=== PATIENT | female | born 1990 | race Caucasian/White ===

== ENCOUNTER 2020-04-03 18:57 | Inpatient (IN) | payer MEDICAID ==
[~2020-04-03] VITALS: Ht 172.7 cm; Wt 58.6 kg
[2020-04-03] MEDS ORDERED: SODIUM CHLORIDE 0.9% 1,000ML IVBOLUS ONE (19:30)
[2020-04-03] MEDS ORDERED: ONDANSETRON 2MG/ML, 2ML IVPush ONE (19:30)
[2020-04-03] MEDS ORDERED: MORPHINE SULFATE 4 MG/ML, 1ML IVPush ONE (19:30)
[2020-04-03] MEDS ORDERED: ONDANSETRON 2MG/ML, 2ML ONE (19:51)
[2020-04-03] MEDS ORDERED: MORPHINE SULFATE 4 MG/ML, 1ML ONE (19:52)
[2020-04-03 20:21] LABS: BASOPHILS % (AUTO) 0 % (0-1); EOSINOPHILS % (AUTO) 1 % (1-7); LYMPHOCYTES % (AUTO) 13 % (22-44); MEAN CORPUSCULAR HEMOGLOBIN 29.5 pg (27.0-34.8); MEAN CORPUSCULAR HGB CONC 33.7 g/dL (32.4-35.8); MONOCYTES % (AUTO) 7 % (2-9); NEUTROPHILS % (AUTO) 80 % (42-75); PLATELET COUNT 262 x10^3/uL (130-400); RED BLOOD COUNT 4.56 x10^6/uL (3.82-5.3); RED CELL DISTRIBUTION WIDTH 13.2 % (9.6-15.2)
[2020-04-03 20:24] LABS: MD NO
--- NOTE | 2020-04-03 20:29 | NUR ---
PT STATES WAKING UP A FEW DAYS AGO WITH PAIN TO RIGHT NECK INTO JAW AND EAR. PT MEDICATED PER ORDER WITH SLIGHT RELIEF STATED. IV PLACED. BLOODS DRAWN. PLAN FOR CT. FAMILY AT BEDSIDE. WILL MONITOR.
[2020-04-03 20:33] LABS: ANION GAP 8 mmol/L (5-15); CALCIUM 8.8 mg/dL (8.5-10.1); CHLORIDE 108 mmol/L (98-107)
[2020-04-03] MEDS ORDERED: KETOROLAC 30 MG/1 ML ONE (20:46)
[2020-04-03] MEDS ORDERED: HYDROmorphone 1 MG/ML, 1ML INJ ONE (20:57)
[2020-04-03] MEDS ORDERED: HYDROmorphone 1 MG/ML, 1ML INJ IV ONE (21:00)
[2020-04-03] MEDS ORDERED: KETOROLAC 30 MG/1 ML IVPush ONE (21:00)
--- NOTE | 2020-04-03 21:01 | NUR ---
CT DELAY- NEED MEDS TO LAY FLAT.
[2020-04-03 21:12] LABS: HCT (SEDRATE) 39.9 % (34.6-47.8)
[2020-04-03] MEDS ORDERED: OMNIPAQUE 350 MG/ML, 100ML BOTTLE ONE (21:46)
[2020-04-03] MEDS ORDERED: CLINDAMYCIN PMX 600MG/50ML 50 ML IV ONE (22:30)
[2020-04-03] MEDS ORDERED: DEXAMETHASONE 4 MG TABLET PO ONE (22:30)
[2020-04-03] MEDS ORDERED: LEVOFLOXACIN/PMX 500MG/100ML 100 ML IV SCH (22:30)
[2020-04-03] MEDS ORDERED: LEVOFLOXACIN/PMX 500MG/100ML 100 ML ONE (22:43)
[2020-04-03] MEDS ORDERED: CLINDAMYCIN PMX 600MG/50ML 50 ML ONE (22:43)
[2020-04-03] MEDS ORDERED: DEXAMETHASONE 4 MG TABLET ONE (22:43)
[2020-04-03] MEDS ORDERED: ENALAPRILAT 1.25 MG/ML, 2ML IVPush PRN (23:30)
[2020-04-03] MEDS ORDERED: ONDANSETRON 2MG/ML, 2ML IVPush PRN (23:30)
[2020-04-03] MEDS ORDERED: ACETAMINOPHEN 325 MG TABLET PO PRN (23:30)
[2020-04-03] MEDS ORDERED: KETOROLAC 30 MG/1 ML IV PRN (23:30)
--- NOTE | 2020-04-03 23:52 | NUR ---
Pt mediated per orders. MRI checklist complete. Pt appears and states she is much more comfortable. Soft c-collar placed. Pt with stable VS. report called to Maryana MONTIEL. Pt to unit via ronel.
[2020-04-04 00:02] VITALS: BP 120/77
[2020-04-04] MEDS: LACTATED RINGERS 1,000 ML IV SCH ×3 (00:13→20:26)
[2020-04-04] MEDS: CLINDAMYCIN PMX 600MG/50ML 50 ML IV SCH ×4 (01:10→23:43)
[2020-04-04] MEDS: HYDROmorphone 2 MG/ML, 1ML IVPush PRN ×2 (02:23→12:47)
[2020-04-04] MEDS ORDERED: GADOTERATE 7.5 MMOL/15 ML VIAL ONE (02:52)
[2020-04-04] MEDS ORDERED: QUET150T4 PO ×2 (03:28→03:47)
[2020-04-04] MEDS ORDERED: QUET25TA70 PO (03:34)
[2020-04-04] MEDS ORDERED: QUET300T PO (03:37)
[2020-04-04 05:25] LABS: BASOPHILS % (AUTO) 0 % (0-1); EOSINOPHILS % (AUTO) 0 % (1-7); LYMPHOCYTES % (AUTO) 5 % (22-44); MEAN CORPUSCULAR HEMOGLOBIN 29.2 pg (27.0-34.8); MEAN CORPUSCULAR HGB CONC 32.9 g/dL (32.4-35.8); MONOCYTES % (AUTO) 2 % (2-9); NEUTROPHILS % (AUTO) 93 % (42-75); PLATELET COUNT 231 x10^3/uL (130-400); RED BLOOD COUNT 4.14 x10^6/uL (3.82-5.3); RED CELL DISTRIBUTION WIDTH 13.1 % (9.6-15.2)
[2020-04-04 05:26] LABS: MD NO
[2020-04-04 05:35] LABS: ANION GAP 6 mmol/L (5-15); CALCIUM 8.3 mg/dL (8.5-10.1); CHLORIDE 109 mmol/L (98-107); CREATININE 0.71 mg/dL (0.55-1.02)
[2020-04-04 07:08] VITALS: BP 107/62
[2020-04-04] MEDS ORDERED: DEXAMETHASONE 4 MG/ML, 1ML IVPush SCH (09:00)
[2020-04-04 12:28] VITALS: BP 102/61
[2020-04-04 18:56] VITALS: BP 112/65
[2020-04-04] MEDS ORDERED: LEVOFLOXACIN/PMX 750MG/150ML 150 ML IV SCH (22:00)
[2020-04-05 01:44] VITALS: BP 113/66
[2020-04-05 08:04] VITALS: BP 120/78
[2020-04-05] MEDS: CLINDAMYCIN PMX 600MG/50ML 50 ML IV SCH (08:19)
[2020-04-05] MEDS: HYDROmorphone 2 MG/ML, 1ML IVPush PRN (08:33)
[2020-04-05] MEDS ORDERED: CLIN300C9 PO (10:07)
[2020-04-05] MEDS ORDERED: LEVO750T6 PO (10:07)
[2020-04-05] MEDS ORDERED: DEXA6TAB6 PO (10:07)
[2020-04-05] MEDS ORDERED: KETO10TA PO (10:07)
== END 2020-04-05 11:53 | disposition home or self-care (01) | DRG 113 ==
LOC: ED 22:02 → EDIP 22:46 → 3N 04-04 00:01 → DCLOUNGE 04-05 11:45
PROVIDERS: ADMIT Family Medicine; ATTEND Family Medicine
DX: J02.9 Acute pharyngitis, unspecified (principal); F17.210 Nicotine dependence, cigarettes, uncomplicated; F51.04 Psychophysiologic insomnia; J35.1 Hypertrophy of tonsils; M43.6 Torticollis; M65.20 Calcific tendinitis, unspecified site; G47.00 Insomnia, unspecified; R13.10 Dysphagia, unspecified; Z20.822 Contact with and (suspected) exposure to COVID-19; Z80.41 Family history of malignant neoplasm of ovary; Z88.0 Allergy status to penicillin; Z79.899 Other long term (current) drug therapy
CPT/HCPCS: 36415; 70491; 72156; 80048; 83605; 84703; 85025; 85651; 87040; 87635; G0378; J1100; J1170; J1885; J1956; J2405; Q9967; A9575; J2270; J7030; J7120

== ENCOUNTER 2020-06-02 13:34 | Emergency (ER) | payer MEDICAID ==
[~2020-06-02] VITALS: Ht 172.7 cm; Wt 51.5 kg
[~2020-06-02 13:34] MED LIST: CLIN300C9 PO; DEXA6TAB6 PO; KETO10TA PO; LEVO750T6 PO; QUET150T4 PO; QUET25TA2 PO; QUET300T PO
--- NOTE | 2020-06-02 14:04 | NUR ---
PT AMBULATORY TO ROOM 21 W/ C/O LESION TO VAGINA AND LUMP TO L GROIN AREA. PT STATES SHE NOTICED THEM A FEW DAYS AGO. ON PALPATION L GROIN LUMP NOTED TO BE TENDER. PT RESTING ON ROTTO. NADN. MONITORS APPLIED. VSS. WARM BLANKET PROVIDED.
[2020-06-02] MEDS ORDERED: CEFTRIAXONE 1,000 MG ONE (14:54)
[2020-06-02] MEDS ORDERED: CEFTRIAXONE 250 MG ONE (14:57)
[2020-06-02] MEDS ORDERED: CEFTRIAXONE 1,000 MG IM ONE (15:00)
[2020-06-02] MEDS ORDERED: FLUCONAZOLE 50 MG TABLET PO ONE (15:00)
[2020-06-02 15:08] LABS: CLUE CELLS PRESENT (NONE SEEN)
[2020-06-02 15:10] LABS: WET PREP WBCS MODERATE (FEW)
--- NOTE | 2020-06-02 15:10 | NUR ---
PT RESTING ON GURNEY. NADN. KIDD.
[2020-06-02 15:17] VITALS: BP 110/63
--- NOTE | 2020-06-02 15:17 | NUR ---
BREAK RN: VS STABLE. CALL LIGHT IN PLACE. WILL CONTINUE TO MONITOR WHILE PRIMARY RN IS ON BREAK.
--- NOTE | 2020-06-02 15:48 | NUR ---
PT CHART REVIEWED AND PLACED FOR RECHECK.
== END 2020-06-02 16:06 | disposition home or self-care (01) ==
LOC: ED 15:34
DX: N76.0 Acute vaginitis (principal); N76.4 Abscess of vulva
CPT/HCPCS: 87210; 87491; 87591; 87808; 96372; 99283; J0696

== ENCOUNTER 2020-10-30 19:56 | Emergency (ER) | payer MEDICAID ==
[~2020-10-30] VITALS: Ht 175.3 cm; Wt 57.0 kg
[2020-10-30 19:59] VITALS: BP 107/62
[2020-10-30] MEDS ORDERED: ACETAMINOPHEN 325 MG TABLET PO ONE (20:30)
--- NOTE | 2020-10-30 20:55 | NUR ---
PATIENT AMBULATED TO THE BATHROOM WITHOUT ASSISTANCE, PELVIC SET UP, PROVIDER AWARE.
[2020-10-30] MEDS ORDERED: ACETAMINOPHEN 325 MG TABLET ONE (21:13)
[2020-10-30 21:21] LABS: CLUE CELLS NONE SEEN (NONE SEEN); WET PREP WBCS NONE SEEN (FEW)
[2020-10-30] MEDS ORDERED: DOXYCYCLINE 100MG TABLET ONE (21:25)
[2020-10-30] MEDS ORDERED: CEFTRIAXONE 1,000 MG ONE (21:25)
[2020-10-30] MEDS ORDERED: CEFTRIAXONE 1,000 MG IM ONE (21:30)
[2020-10-30] MEDS ORDERED: DOXYCYCLINE 100MG TABLET PO ONE (21:30)
[2020-10-30] MEDS ORDERED: KETOROLAC 30 MG/1 ML IM ONE (22:00)
== END 2020-10-30 21:47 | disposition home or self-care (01) ==
LOC: ED 20:26
DX: B00.9 Herpesviral infection, unspecified (principal); A64 Unspecified sexually transmitted disease; F17.210 Nicotine dependence, cigarettes, uncomplicated; Z72.9 Problem related to lifestyle, unspecified; R30.0 Dysuria; R10.2 Pelvic and perineal pain
CPT/HCPCS: 36415; 82962; 84703; 87210; 87491; 87591; 87806; 87808; 96372; 99284; 99406; J0696; G0475